=== PATIENT | female | born 1970 | race Caucasian/White ===

== ENCOUNTER → 2020-10-18 | Outpatient (CLI) | payer BC, OTHER ==
[~2020-10-18] MED LIST: DESYREL 50 MG T50 MG PO; FAMOTIDINE20 MG PO; FISH OIL 1,0001 EACH PO; IBU800 MG PO; LINZESS145 MCG PO; LISINOPRIL5 MG PO; LORTAB 5-325 M1 EACH PO; NAPROSYN500 MG PO; OMNICEF 300 MG300 MG PO; VITAMIN D21250 MCG PO; ZOFRAN4 MG PO
== END ==
LOC: US 13:40
DX: Z12.39 Encounter for other screening for malignant neoplasm of breast (principal); Z98.82 Breast implant status
CPT/HCPCS: 76641-LT; 76641-RT

== ENCOUNTER 2021-01-30 19:45 | Observation (INO) | payer OTHER ==
[~2021-01-30] VITALS: Ht 157.5 cm; Wt 56.7 kg
[~2021-01-30 19:45] MED LIST changes: -DESYREL 50 MG T50 MG PO; -FAMOTIDINE20 MG PO; -FISH OIL 1,0001 EACH PO; -IBU800 MG PO; -LINZESS145 MCG PO; -LISINOPRIL5 MG PO; -VITAMIN D21250 MCG PO
[2021-01-30 20:39] LABS: HEMOGLOBIN 14.1 gm/dl (12.3-15.3); RED BLOOD COUNT 4.47 M/UL (4.00-5.10); WHITE BLOOD COUNT 7.3 K/UL (4.5-11.0)
[2021-01-31] MEDS ORDERED: LISINOPRIL5 MG PO (03:06)
[2021-01-31] MEDS ORDERED: VITAMIN D21250 MCG PO (03:07)
[2021-01-31] MEDS ORDERED: FISH OIL 1,0001 EACH PO (03:08)
[2021-01-31] MEDS ORDERED: IBU800 MG PO (03:09)
[2021-01-31] MEDS ORDERED: DESYREL 50 MG T50 MG PO (10:11)
[2021-01-31] MEDS ORDERED: LINZESS145 MCG PO (10:12)
[2021-02-01 05:33] LABS: BUN/CREATININE RATIO 18 (0-10)
[2021-02-01] MEDS ORDERED: FAMOTIDINE20 MG PO (12:40)
== END 2021-02-01 14:31 | disposition home or self-care (01) ==
LOC: ER1 19:45 → CDU 21:47 → MED SURG 4 01-31 13:57
PROVIDERS: Emergency Medicine; Internal Medicine; ADMIT Internal Medicine
DX: I16.0 Hypertensive urgency (principal); I10 Essential (primary) hypertension; F14.10 Cocaine abuse, uncomplicated; E78.5 Hyperlipidemia, unspecified; F41.9 Anxiety disorder, unspecified; K58.9 Irritable bowel syndrome, unspecified; E87.6 Hypokalemia; G89.29 Other chronic pain; Z20.822 Contact with and (suspected) exposure to COVID-19; Z91.14 Patient's other noncompliance with medication regimen; Z79.899 Other long term (current) drug therapy
CPT/HCPCS: ECHO; 36415; 71045; 80048; 80053; 80061; 80307; 82550; 82553; 83036; 83735; 83874; 84100; 84439; 84443; 84484; 85025; 93005; 93306; 96372; 99285; G0378; J1650; U0002